=== PATIENT | female | born 1960 | race Caucasian/White ===

== ENCOUNTER → 2018-11-10 09:52 | Outpatient (CLI) | payer OTHER, SELFPAY ==
--- NOTE | 2018-11-10 | DI.MG.S_ITS ---
BILATERAL DIGITAL SCREENING MAMMOGRAM 3D/2D WITH CAD: 11/10/2018 CLINICAL: Routine screening. Family history of breast cancer. Comparison is made to exams dated: 10/12/2014 mammogram, 10/11/2013 mammogram, and 08/20/2011 mammogram - [facility]. There are scattered fibroglandular elements in both breasts. Current study was also evaluated with a Computer Aided Detection (CAD) system. No significant masses, calcifications, or other findings are seen in either breast. There has been no significant interval change. IMPRESSION: NEGATIVE There is no mammographic evidence of malignancy. A 1 year screening mammogram is recommended. This exam was interpreted at Station ID: [id number]. NOTE: For mammograms, a report in lay terms will be sent to the patient. Approximately 15% of breast malignancies will not be visualized mammographically. In the management of a palpable breast mass, a negative mammogram must not discourage biopsy of a clinically suspicious lesion. Electronically Signed By: Jerod wyman/katerine:11/10/2018 17:27:42 letter sent: Normal Exam ACR BI-RADS Category 1: Negative 3341F
[2018-11-10 10:12] LABS: Hematocrit 40.7 % (36-46); Hemoglobin 13.9 g/dL (12.0-16.0); Mean Corpuscular HGB Conc 34.2 % (30-36); Mean Corpuscular Hemoglobin 29.9 PG (26-34); Mean Corpuscular Volume 87.3 fL (80-100); Platelet Count 281 X10^3/uL (150-400); Red Blood Cell Count 4.66 X10^6/uL (4.0-5.2); Red Cell Distribution Width 12.6 % (11.6-14.8); White Blood Cell Count 5.1 X10^3/uL (4.5-11.0)
[2018-11-10 10:24] LABS: Alanine Aminotransferase 27 IU/L (9-52); Albumin 4.7 g/dL (3.5-5.0); Albumin Globulin Ratio 1.6 (1.0-2.8); Alkaline Phosphatase 55 U/L (38-126); Aspartate Aminotransferase 33 IU/L (14-36); BUN Creatinine Ratio 18.8 (6-22); Bilirubin Total 0.4 mg/dL (0.2-1.3); Blood Urea Nitrogen 15 mg/dL (7-17); Calcium 9.8 mg/dL (8.4-10.2); Carbon Dioxide 28 mmol/L (22-32); Chloride 101 mmol/L (98-107); Cholesterol 190 mg/dL (140-199); Estimated Glomerular Filt Rate > 60.0 mL/min (>60); Globulin 2.9 g/dL (1.7-4.1); Glucose 89 mg/dL (70-100); HDL Cholesterol 44 mg/dL (40-60); HEMOLYSIS < 15 (0-50); LDL Cholesterol Calculated 128 mg/dL (<100); Potassium 4.2 mmol/L (3.4-5.1); Sodium 143 mmol/L (137-145); Total Protein 7.6 g/dL (6.3-8.2); Triglycerides 88 mg/dL (35-150)
[2018-11-10 10:46] LABS: Neutrophils Absolute Manual 2652 /uL (3000-5900); Total Cells Counted 100
[2018-11-10 10:47] LABS: RBC Morphology Normal Morphology
[2018-11-10 11:08] LABS: Thyroid Stimulating Hormone 7.76 uIU/mL (0.47-4.68)
[2018-11-15 18:16] LABS: Free T3, Triiodothyronine Free 3.99 pg/mL (2.77-5.27); Free T4, Direct Thyroxine 1.07 ng/dL (0.78-2.19)
== END ==
PROVIDERS: PCP Family Medicine; Visit Provider Family Medicine
DX: Z12.31 Encounter for screening mammogram for malignant neoplasm of breast (principal); Z80.3 Family history of malignant neoplasm of breast; E66.9 Obesity, unspecified; Z13.0 Encounter for screening for diseases of the blood and blood-forming organs and certain disorders involving the immune mechanism; Z13.220 Encounter for screening for lipoid disorders; Z13.29 Encounter for screening for other suspected endocrine disorder
CPT/HCPCS: 36415; 77063; 77067; 80053; 80061; 84439; 84443; 84481; 85025

== ENCOUNTER → 2018-11-15 09:07 | Outpatient (CLI) | payer OTHER, SELFPAY | PROVIDERS: PCP Family Medicine; Visit Provider Family Medicine | DX: E03.9 Hypothyroidism, unspecified (principal) ==

== ENCOUNTER → 2020-10-04 09:10 | Outpatient (CLI) | payer OTHER, SELFPAY ==
[2020-10-07 07:46] LABS: COVID19 Sendout Not Detected (Not Detect)
== END ==
PROVIDERS: PCP Family Medicine; Visit Provider Physician Assistant
DX: Z11.59 Encounter for screening for other viral diseases (principal)
CPT/HCPCS: 87635

== ENCOUNTER → 2020-11-14 10:39 | Outpatient (CLI) | payer OTHER, SELFPAY ==
--- NOTE | 2020-11-14 | DI.MG.S_ITS ---
BILATERAL DIGITAL SCREENING MAMMOGRAM 3D/2D WITH CAD: 11/14/2020 CLINICAL: Routine screening. Family history of breast cancer. Comparison is made to exams dated: 11/10/2018 mammogram - [facility], 10/12/2014 mammogram, and 10/11/2013 mammogram - [facility]. There are scattered fibroglandular elements in both breasts. Current study was also evaluated with a Computer Aided Detection (CAD) system. There is a new 0.6 cm asymmetry with a microlobulated margin in the right breast anterior depth inferior region seen on the mediolateral oblique view only. Finding is seen only on tomography MLO slice /72. No other significant masses, calcifications, or other findings are seen in either breast. There has been no significant interval change. IMPRESSION: INCOMPLETE: NEEDS ADDITIONAL IMAGING EVALUATION The new 0.6 cm asymmetry in the right breast is indeterminate. Additional views with possible ultrasound are recommended. This exam was interpreted at Station ID: [id number]. NOTE: For mammograms, a report in lay terms will be sent to the patient. Approximately 15% of breast malignancies will not be visualized mammographically. In the management of a palpable breast mass, a negative mammogram must not discourage biopsy of a clinically suspicious lesion. Electronically Signed By: Urban Barboza acr/:11/14/2020 12:03:29 letter sent: Additional Imaging Needed ACR BI-RADS Category 0: Incomplete 3340F
== END ==
PROVIDERS: PCP Family Medicine; Referring Provider Family Medicine; Visit Provider Family Medicine
DX: Z12.31 Encounter for screening mammogram for malignant neoplasm of breast (principal); Z80.3 Family history of malignant neoplasm of breast
CPT/HCPCS: 77063; 77067

== ENCOUNTER → 2020-12-13 14:01 | Outpatient (CLI) | payer OTHER, SELFPAY ==
--- NOTE | 2020-12-13 14:02 | DI.MG.S_ITS ---
UNILATERAL RIGHT DIGITAL DIAGNOSTIC MAMMOGRAM 3D/2D WITH ADDITIONAL VIEWS: 12/13/2020 CLINICAL: Additional evaluation requested from prior study. Comparison is made to exams dated: 11/14/2020 mammogram, 11/10/2018 mammogram - [facility], 10/12/2014 mammogram, and 10/11/2013 mammogram - [facility]. There are scattered fibroglandular elements in right breast. There is an asymmetry in the right breast anterior depth inferior region seen on the mediolateral oblique view only. Finding is seen only on tomography. This is less prominent. No other significant masses or calcifications are seen in the breast. IMPRESSION: INCOMPLETE: NEEDS ADDITIONAL IMAGING EVALUATION The asymmetry in the right breast is indeterminate. A targeted ultrasound is recommended and will immediately follow. This exam was interpreted at Station ID: [id number]. NOTE: For mammograms, a report in lay terms will be sent to the patient. Approximately 15% of breast malignancies will not be visualized mammographically. In the management of a palpable breast mass, a negative mammogram must not discourage biopsy of a clinically suspicious lesion. Electronically Signed By: Du William M.D. slc/:12/13/2020 15:57:55 ACR BI-RADS Category 0: Incomplete 3340F
--- NOTE | 2020-12-13 14:02 | DI.US.S_ITS ---
LIMITED ULTRASOUND OF RIGHT BREAST: 12/13/2020 CLINICAL: Patient returns today to evaluate a focal asymmetry in the right breast. Comparison is made to exams dated: 12/13/2020 mammogram, 11/14/2020 mammogram, 11/10/2018 mammogram - [facility], 10/12/2014 mammogram, and 10/11/2013 mammogram - [facility]. Color flow and real-time ultrasound of the right breast 6-9 o'clock region were performed. Emmanuel scale images of the real-time examination were reviewed. There is a minimally prominent duct in the right breast at 9 o'clock 3 cm from the nipple containing intraluminal debris. Color flow imaging demonstrates that there is no vascularity present. Duct measures 2 mm in diameter. This is likely an incidental finding. No additional cysts seen. IMPRESSION: PROBABLY BENIGN Minimally prominent duct in the right breast with debris is probably benign. A follow-up mammogram and an ultrasound in 6 months is recommended to demonstrate stability. Exam findings were conveyed to the patient. This exam was interpreted at Station ID: [id number]. Electronically Signed By: Du William M.D. [facility]/:12/13/2020 16:16:03 letter sent: Followup Recommended Ultrasound BI-RADS: 3 Probably benign
== END ==
PROVIDERS: PCP Family Medicine; Referring Provider Family Medicine; Visit Provider Family Medicine
DX: R92.8 Other abnormal and inconclusive findings on diagnostic imaging of breast (principal); N64.89 Other specified disorders of breast
CPT/HCPCS: 76642; 77065; G0279

== ENCOUNTER → 2021-08-08 09:21 | Outpatient (CLI) | payer OTHER, SELFPAY ==
--- NOTE | 2021-08-08 | DI.US.S_ITS ---
LIMITED ULTRASOUND OF RIGHT BREAST: 08/08/2021 CLINICAL: Patient returns for a 6 month follow up of the right breast. Comparison is made to exams dated: 08/08/2021 mammogram, 12/13/2020 ultrasound, 12/13/2020 mammogram, 11/14/2020 mammogram, and 11/10/2018 mammogram - [facility]. Color flow ultrasound of the right breast was performed. Emmanuel scale images of the real-time examination were reviewed. There is a dilated duct in the right breast at 9 o'clock middle depth. This dilated duct is of mixed echogenicity with internal echoes. This abnormality is not significantly changed. Color flow imaging demonstrates that there is no vascularity present. IMPRESSION: PROBABLY BENIGN The dilated duct in the right breast is probably benign. A follow-up mammogram and an ultrasound in 6 months is recommended to demonstrate stability. This exam was interpreted at Station ID: [id number]. Electronically Signed By: Stan jackson/katerine:08/08/2021 11:16:04 letter sent: Followup Recommended Ultrasound BI-RADS: 3 Probably benign
--- NOTE | 2021-08-08 | DI.MG.S_ITS ---
UNILATERAL RIGHT DIGITAL DIAGNOSTIC MAMMOGRAM 3D/2D SHORT-TERM FOLLOW-UP: 08/08/2021 CLINICAL: Short term follow up. Comparison is made to exams dated: 12/13/2020 mammogram, 11/14/2020 mammogram, 11/10/2018 mammogram, and 12/13/2020 [facility]. There are scattered fibroglandular elements in right breast. There is an asymmetry in the right breast anterior depth inferior region seen on the mediolateral oblique view only. Finding is seen only on tomography. This is not significantly changed. No other significant masses or calcifications are seen in the breast. IMPRESSION: INCOMPLETE: NEEDS ADDITIONAL IMAGING EVALUATION The asymmetry in the right breast is indeterminate. Targeted ultrasound is recommended for further evaluation, which will be performed immediately following this exam. This exam was interpreted at Station ID: [id number]. NOTE: For mammograms, a report in lay terms will be sent to the patient. Approximately 15% of breast malignancies will not be visualized mammographically. In the management of a palpable breast mass, a negative mammogram must not discourage biopsy of a clinically suspicious lesion. Electronically Signed By: Stan jackson/katerine:08/08/2021 11:12:45 ACR BI-RADS Category 0: Incomplete 3340F
== END ==
PROVIDERS: PCP Family Medicine; Referring Provider Family Medicine; Visit Provider Family Medicine
DX: R92.8 Other abnormal and inconclusive findings on diagnostic imaging of breast (principal); N60.41 Mammary duct ectasia of right breast
CPT/HCPCS: 76642; 77065; G0279

== ENCOUNTER → 2022-02-17 11:42 | Outpatient (CLI) | payer OTHER, SELFPAY ==
--- NOTE | 2022-02-17 | DI.MG.S_ITS ---
BILATERAL DIGITAL DIAGNOSTIC MAMMOGRAM 3D/2D: 02/17/2022 CLINICAL: Late short term follow up Family history of breast cancer. Comparison is made to exams dated: 08/08/2021 mammogram, 12/13/2020 mammogram, 11/14/2020 mammogram, and 11/10/2018 mammogram - [facility]. There are scattered fibroglandular elements in both breasts. Prior asymmetry indicated on the initial study from 11/14/20 is no longer seen in the right breast at 8 o'clock in the anterior depth. There is an oval, tubular equal density asymmetry with a circumscribed margin in the right breast at 9 o'clock anterior depth. This is seen in additional views. This is more prominent and likely corresponds to the dilated duct seen on previous ultrasounds. No other significant masses, calcifications, or other findings are seen in either breast. Mammograms are otherwise stable. IMPRESSION: INCOMPLETE: NEEDS ADDITIONAL IMAGING EVALUATION The oval equal density asymmetry in the right breast is likely the dilated duct previously seen. An ultrasound is recommended for confirmation. This was performed immediately following this exam. The initial asymmetry at 8:00 has resolved. This exam was interpreted at Station ID: [id number]. NOTE: For mammograms, a report in lay terms will be sent to the patient. Approximately 15% of breast malignancies will not be visualized mammographically. In the management of a palpable breast mass, a negative mammogram must not discourage biopsy of a clinically suspicious lesion. Electronically Signed By: Cecelia gay/:02/17/2022 13:06:19 ACR BI-RADS Category 0: Incomplete 3340F
--- NOTE | 2022-02-17 11:43 | DI.US.S_ITS ---
LIMITED ULTRASOUND OF RIGHT BREAST: 02/17/2022 CLINICAL: 6 month follow-up of prominent duct. Comparison is made to exams dated: 02/17/2022 mammogram, 08/08/2021 ultrasound, 08/08/2021 mammogram, 12/13/2020 ultrasound, 12/13/2020 mammogram, and 11/14/2020 mammogram - [facility]. Color flow ultrasound of the right breast 3 o'clock region was performed. Emmanuel scale images of the real-time examination were reviewed. There is a stable 0.4 cm x 1.2 cm x 0.3 cm dilated duct in the right breast at 9 o'clock middle depth 3 cm from the nipple. This dilated duct is of mixed echogenicity with internal echoes. This correlates with mammography findings. Color flow imaging demonstrates that there is no vascularity present. 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 A follow-up right ultrasound in 12 months is recommended. Future imaging is recommended as follows: 02/18/2023 screening mammogram. Findings and recommendations were conveyed to the patient at time of exam. This exam was interpreted at Station ID: [id number]. Electronically Signed By: Cecelia gay/:02/17/2022 14:10:09 letter sent: Followup Recommended Ultrasound BI-RADS: 3 Probably benign
== END ==
PROVIDERS: PCP Family Medicine; Referring Provider Family Medicine; Visit Provider Family Medicine
DX: R92.8 Other abnormal and inconclusive findings on diagnostic imaging of breast (principal); N60.41 Mammary duct ectasia of right breast; Z80.3 Family history of malignant neoplasm of breast
CPT/HCPCS: 76642; 77066; G0279

== ENCOUNTER → 2022-03-26 14:27 | Outpatient (CLI) | payer OTHER, SELFPAY | PROVIDERS: PCP Family Medicine; Visit Provider Nurse Practitioner Family | DX: N39.0 Urinary tract infection, site not specified (principal) | CPT/HCPCS: 87077; 87086; 87186 ==

== ENCOUNTER → 2022-06-10 13:03 | Outpatient (CLI) | payer OTHER, SELFPAY ==
[2022-06-10 13:48] LABS: Cholesterol 227 mg/dL (140-199); Glucose 90 mg/dL (80-110); HDL Cholesterol 53 mg/dL (40-60); LDL Cholesterol Calculated 148 mg/dL (<100); Triglycerides 130 mg/dL (35-150)
== END ==
PROVIDERS: PCP Family Medicine; Referring Provider Family Medicine; Visit Provider Family Medicine
DX: E78.5 Hyperlipidemia, unspecified (principal)
CPT/HCPCS: 36415; 80061; 82947

== ENCOUNTER → 2023-04-19 11:51 | Outpatient (CLI) | payer OTHER, SELFPAY ==
--- NOTE | 2023-04-19 11:51 | DI.MG.S_ITS ---
BILATERAL DIGITAL DIAGNOSTIC MAMMOGRAM 3D/2D SHORT-TERM FOLLOW-UP: 04/19/2023 CLINICAL: Short term follow up of the right breast, due for bilateral imaging. Comparison is made to exams dated: 02/17/2022 mammogram, 08/08/2021 mammogram, 12/13/2020 mammogram, and 11/14/2020 mammogram - [facility]. There are scattered areas of fibroglandular density in both breasts (category b / 25%-50% glandular tissue). There is a stable asymmetry in the right breast at 9 o'clock anterior depth. No other significant masses, calcifications, or other findings are seen in either breast. IMPRESSION: INCOMPLETE: NEEDS ADDITIONAL IMAGING EVALUATION The stable asymmetry in the right breast is indeterminate. A targeted ultrasound of the right breast is recommended and will be performed immediately following this exam. Based on the Tyrer Cuzick model (a risk assessment model) the patient's lifetime risk is 14.4% and her 10 year risk is 6.1%. According to the ACR, ACS, and NCCN guidelines, an annual breast MRI exam along with mammogram is recommended if the patient's lifetime risk is 20% or greater. This exam was interpreted at Station ID: [id number]. NOTE: For mammograms, a report in lay terms will be sent to the patient. Approximately 15% of breast malignancies will not be visualized mammographically. In the management of a palpable breast mass, a negative mammogram must not discourage biopsy of a clinically suspicious lesion. Electronically Signed By: Bethanie Reilly M.D. lk/:04/19/2023 12:45:22 ACR BI-RADS Category 0: Incomplete 3340F
--- NOTE | 2023-04-19 11:51 | DI.US.S_ITS ---
ULTRASOUND OF RIGHT BREAST: 04/19/2023 CLINICAL: Follow up for cyst. Comparison is made to exams dated: 04/19/2023 mammogram, 02/17/2022 ultrasound, 02/17/2022 mammogram, 08/08/2021 ultrasound, 08/08/2021 mammogram, and 12/13/2020 ultrasound - [facility]. Ultrasound of the right breast was performed on the area of interest. Emmanuel scale images of the real-time examination were reviewed. There is a stable 0.3 cm x 0.9 cm x 0.5 cm dilated duct in the right breast at 9 o'clock middle depth 3 cm from the nipple. This dilated duct is of mixed echogenicity with internal echoes. This correlates with mammography findings. Color flow imaging demonstrates that there is no vascularity present. This has demonstrated over 24 months stability. IMPRESSION: BENIGN There is no sonographic evidence of malignancy. 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 Return to annual mammogram screening schedule is recommended. This exam was interpreted at Station ID: [id number]. Electronically Signed By: Bethanie berg/:04/19/2023 14:28:42 letter sent: Normal Exam Ultrasound BI-RADS: 2 Benign
== END ==
PROVIDERS: PCP Family Medicine; Referring Provider Family Medicine; Visit Provider Family Medicine
DX: N63.10 Unspecified lump in the right breast, unspecified quadrant (principal); Z12.39 Encounter for other screening for malignant neoplasm of breast; N64.89 Other specified disorders of breast
CPT/HCPCS: 76642; 77066; G0279

== ENCOUNTER 2024-05-04 09:33 | Day surgery (SDC) | payer OTHER, SELFPAY ==
--- NOTE | 2024-05-04 | PATH_ITS ---
[facility] Accession Number: [id number] No. of containers..01 Tissue . 01 Material submitted: . cecum - CECAL POLYP . 01 Diagnosis: CECAL POLYP: Colonic mucosa with benign lymphoid aggregate. No neoplasm identified. . Specimen Comments: Additional step sections were examined. [facility] 05/11/20241757 Local . 01 Electronically signed: . Jerod Humphries MD, Pathologist NPI- [id number] . 01 Gross description: . Received in formalin with two patient identifiers and designated cecal polyp, and consists of five sood-brown tissue fragments ranging from 0.2 x 0.2 x 0.1 cm up to 0.6 x 0.2 x 0.1 cm. The specimens are entirely submitted in cassette A1. ([id number]) /V 05/11/20241757 Local . 01 Pathologist provided ICD-10: K63.89 . 01 CPT . 759828 Specimen Comment: A courtesy copy of this report has been sent to [phone] Performed at: [address] [id number] MD Jerod Humphries MD Phone: [phone]
--- NOTE | 2024-05-04 10:02 | PM.HP.1 ---
History of Present Illness History of Present Illness Date Patient Seen: 05/04/24 Time Patient Seen: 10:02 Chief complaint: SDC Narrative: Yeni is a 63-year-old woman who is here for a colonoscopy. Her last was about 10 years ago and was normal. No family history of colon cancer. [facility] Medical History (Updated 05/04/24 @ 10:03 by Barry Moarn MD) Melanoma Family History (Updated 09/14/18 @ 15:56 by Symone Coe MD) Mother Cancer Father Myocardial infarct CVA (cerebral vascular accident) Social History marital status: household members: spouse and family lives independently: Yes caregiver/support person: No housing: house Smoking Status: Never smoker second hand exposure: No alcohol intake: current substance use type: does not use Meds Home Medications and Allergies Home Medications Medication Instructions Recorded Confirmed Type peg 3350-sod sulf,yuhyq-tvl-xlm 1,000 ml PO DIRECTED #2,000 mL 04/06/24 Rx 178.7-7.3-0.5-1.12-0.9 gram oral soln (Suflave) Allergies Allergy/AdvReac Type Severity Reaction Status Date / Time No Known Drug Allergies Allergy Unverified 06/10/22 12:18 Exam Const General: healthy appearing Resp Effort & Inspection: normal respiratory effort Assessment & Plan Assessment and plan (1) Colon cancer screening: Status: Acute Plan We reviewed the risks and benefits of colonoscopy for colon cancer screening and she would like to proceed.
[2024-05-04 10:10] VITALS: BP 123/73; PULSE 94; RESP 17; TEMP 37.1; O2SAT 95
[2024-05-04] MEDS: LACTATED RINGERS 1,000 ML 42 ML IV (10:17)
[2024-05-04 11:04] VITALS: BP 99/60; PULSE 78; RESP 16; TEMP 36.5; O2SAT 96
--- NOTE | 2024-05-04 11:04 | PM.OP.COLON ---
Operative Date/Time/Diagnoses Date of procedure: 05/04/24 Time of procedure: 11:04 Pre-op diagnosis: Colon cancer screening Post-op diagnosis: same Procedure & Clinicians Study performed: Colonoscopy Same procedure as scheduled: Yes Surgeon: Barry Moran Procedure Notes Procedure in detail: Surgeon: Barry Moran MD Anesthesia: Figueroa Ferrari D.O. Procedure: The patient was brought to the endoscopy suite, placed in left lateral decubitus position. The patient was connected to monitoring devices. A time-out was performed. Sedation was administered. Once the patient was adequately sedated, a digital rectal exam was performed and was normal. The scope was then inserted and advanced to the cecum where the appendiceal orifice was identified and photographed. The scope was then slowly withdrawn over greater than 6 minutes. The mucosa was thoroughly inspected. There was a polyp in the cecum measuring roughly 7 mm removed with a hot snare. The scope was retroflexed in the rectum. No other abnormalities were found. The scope was straightened and removed. The patient was awakened and brought to recovery. Scope withdrawal time: 10 minutes Sedation time: 15 minutes EBL: 2 mL Findings: 7 mm polyp in the cecum Post-procedure Disposition: PACU
[2024-05-04 11:09] VITALS: BP 99/76; PULSE 85; RESP 89; O2SAT 18
[2024-05-04 11:14] VITALS: BP 103/70; PULSE 85; RESP 16; O2SAT 96
[2024-05-04 11:19] VITALS: BP 111/75; PULSE 77; RESP 16; O2SAT 98
== END 2024-05-04 11:29 | disposition home or self-care (01) ==
PROVIDERS: PCP Family Medicine; Referring Provider Surgery; Visit Provider Surgery
PROC: 0DJD8ZZ Inspection of Lower Intestinal Tract, Via Natural or Artificial Opening Endoscopic (ICD-10-PCS; CPT 45378; principal; 2024-05-04 10:45)
DX: Z12.11 Encounter for screening for malignant neoplasm of colon (principal); K63.5 Polyp of colon
CPT/HCPCS: 45385; J2704

== ENCOUNTER → 2024-06-20 08:51 | Outpatient (CLI) | payer OTHER, SELFPAY ==
--- NOTE | 2024-06-20 | DI.MG.S_ITS ---
BILATERAL DIGITAL SCREENING MAMMOGRAM 3D/2D WITH CAD: 06/20/2024 CLINICAL: Routine screening. Family history of breast cancer. Comparison is made to exams dated: 04/19/2023 mammogram, 02/17/2022 mammogram, 08/08/2021 mammogram, 12/13/2020 mammogram, and 11/14/2020 mammogram - [facility]. There are scattered areas of fibroglandular density in both breasts (category b / 25%-50% glandular tissue). Current study was also evaluated with a Computer Aided Detection (CAD) system. No significant masses, calcifications, or other findings are seen in either breast. There has been no significant interval change. IMPRESSION: NEGATIVE There is no mammographic evidence of malignancy. A 1 year screening mammogram is recommended. Based on the Tyrer Cuzick model (a risk assessment model) the patient's lifetime risk is 16.4% and her 10 year risk is 7.2%. According to the ACR, ACS, and NCCN guidelines, an annual breast MRI exam along with mammogram is recommended if the patient's lifetime risk is 20% or greater. This exam was interpreted at Station ID: [id number]. NOTE: For mammograms, a report in lay terms will be sent to the patient. Approximately 15% of breast malignancies will not be visualized mammographically. In the management of a palpable breast mass, a negative mammogram must not discourage biopsy of a clinically suspicious lesion. Electronically Signed By: Stan jackson/katerine:06/20/2024 11:54:59 letter sent: Normal Exam ACR BI-RADS Category 1: Negative 3341F
== END ==
PROVIDERS: PCP Family Medicine; Referring Provider Family Medicine; Visit Provider Family Medicine
DX: Z12.31 Encounter for screening mammogram for malignant neoplasm of breast (principal); Z80.3 Family history of malignant neoplasm of breast; R92.323 Mammographic fibroglandular density, bilateral breasts
CPT/HCPCS: 77063; 77067